=== PATIENT | female | born 1980 | race Caucasian/White ===

== ENCOUNTER 2023-11-01 20:48 | Emergency (ER) | payer MEDICAID, SELFPAY ==
[2023-11-01 20:48] VITALS: BP 157/101; PULSE 130; RESP 25; TEMP 36.6; O2SAT 100
--- NOTE | 2023-11-01 21:04 | ED.RN ---
Pt presents to ED. Shoves pt safety plan into RNs direction, Read it RN explains to pt that she needs to understand why pt is here and asks pt to elaborate on safety plan. Pt states she does not want to go to a psych [facility] and doesn't want to be seen, but wants RN to talk to . Pt calls and asks RN to explain to that she has multiple personality disorder. RN explains she cannot do this due to not knowing pt or her situation. says pt has been snorting white stuff all day and threatened to call police. Pt then agrees to be sen by ER doc. Explains during triage that she has had thoughts of hurting self starting this morning, but has no plan. Refuses to discuss anymore with this RN.
--- NOTE | 2023-11-01 21:16 | EKG12_ITS ---
Test Reason : MHC Blood Pressure : / mmHG Vent. Rate : 103 BPM Atrial Rate : 103 BPM P-R Int : 132 ms QRS Dur : 090 ms QT Int : 362 ms P-R-T Axes : 033 004 002 degrees QTc Int : 474 ms Sinus tachycardia MINOR NSSTTW CHANGES INFERIOR ABNORMAL Confirmed by Power Cohn ([id number]), health editor ALYSSA NICHOLAS ([id number]) on 11/04/2023 8:15:02 AM Referred By: Confirmed By:Power Cohn
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
[2023-11-01 21:33] VITALS: BMI 27.7
--- NOTE | 2023-11-01 21:38 | ED.RN ---
This nurse spoke to Dirk per patient request. Dirk describes manic type behaviors and that patient has been texting him telling him that she wanted to kill herself.
[2023-11-01 22:00] VITALS: BP 133/92; PULSE 91; RESP 14; O2SAT 99
--- NOTE | 2023-11-01 22:11 | ED.RN ---
The pt states she does not know her home meds. This RN called her and he does not know her home meds either but is trying to log in to her [employer] to find them.
[2023-11-01 22:26] LABS: Absolute Lymphocyte Count 2.24 X10^3/uL (0.83-4.51); Absolute Neutrophil Count 7.9 X10^3/uL (2.0-7.7); Basophil# 0.07 X10^3/uL; Basophil% 0.6 % (0-1); Eosinophil# 0.04 X10^3/uL; Eosinophils% 0.4 % (0-5); Hematocrit 46.4 % (37-47); Hemoglobin 14.8 g/dL (12.0-15.0); Lymphocyte # 2.24 X10^3/ul (0.83-4.51); Mean Corp Hgb Conc 31.9 g/dL (32-36); Mean Corpuscular Hgb 30.5 pg (27.0-32.0); Mean Corpuscular Volume 95.5 fL (81-99); Mean Platelet Vol. 10.1 fl (6.2-12.0); Monocyte# 0.93 X10^3/uL; Monocyte% 8.3 % (0-10); NRBC Flagged by Analyzer 0 % (0-5); Neutrophil # 7.86 X10^3/uL (2.7-7.7); Neutrophil % 70.1 % (47-70); Platelet Count 303 K/mm3 (150-450); RBC Distribution Width CV 12.7 % (11.6-14.6); RBC Distribution Width SD 44.2 fl (35.1-43.9); Red Blood Count 4.86 M/mm3 (4.2-5.4); White Blood Count 11.2 K/mm3 (4.4-11.0)
[2023-11-01 22:32] LABS: Red Blood Cells-Urine 0 SEEN /hpf (0-5)
[2023-11-01 22:34] LABS: Color, Urine Yellow (Yellow); Glucose, Dipstick Normal (Normal); Ketone-Dipstick Negative (Negative); Leukocyte Esterase-Dipstick 25 /ul (Negative); Nitrite-Dipstick Negative (Negative); Occult Blood-Urine Negative /ul (Negative); Protein-Dipstick 15 mg/dl (Negative); Urine Bilirubin Dipstick Negative (Negative); Urine Clarity Sl. Cloudy (Clear); Urine Urobilinogen 1 mg/dl (Normal)
[2023-11-01 22:36] LABS: Alcohol, Blood (Medical)-Serum < 3.0 mg/dL; Internal QC Validated? YES +Cl - CLEAR BKGD; Pregnancy, Serum, hCG Quali. NEGATIVE Negative
[2023-11-01 22:37] LABS: Anion Gap 8 (5-15); BUN 12 mg/dL (7-18); BUN/Creat Ratio 16.9 RATIO (10-20); Calcium,Total 9.5 mg/dL (8.5-10.1); Chloride 111 mmol/L (98-107); Creatinine, Serum 0.71 mg/dL (0.55-1.02); EST Glomerular Filtration Rate 96 mL/min (>60); Est Glom Filt Rate - Afr Amer 116 mL/min (>60); Estimated Creatinine Clearance 97.51 ml/min; Glucose 149 mg/dL (74-106); Potassium 3.3 mmol/L (3.5-5.1); Sodium Level 138 mmol/L (136-145)
[2023-11-01 22:41] LABS: Bacteria 2+ /hpf (None Seen); Mucous, Urine 1+ /hpf (<or=2+); Squamous Epithelial Cells - UA 0-5 SEEN /hpf (5-10); White Blood Cells 0-5 SEEN /hpf (0-5)
[2023-11-01 22:46] LABS: Amphetamine Urine VISTA NEGATIVE (<1000 ng/mL); Barbiturate Urine VISTA NEGATIVE (< 200 ng/mL); Benzodiazepine Urine VISTA NEGATIVE (< 200 ng/mL); Cocaine Urine VISTA NEGATIVE (< 300 ng/mL); Ecstacy Urine VISTA NEGATIVE (< 500 ng/mL); Methadone Urine VISTA NEGATIVE (< 300 ng/mL); PCP Urine VISTA NEGATIVE (< 25 ng/mL); THC Urine VISTA POSITIVE (< 50 ng/mL); Vista UDS pH Range 5
--- NOTE | 2023-11-01 23:07 | ED.RN ---
This RN was attempting to get the patient checked in and clothes off for suicidal ideations and homicidal ideations due to [facility] protocol and pt safety. This RN and security was at bedside due to the patient refusing to remove her clothes and attempting to leave. The pt was screaming, then refusing to talk because we weren't listening to her. Dr Barillas was at bedside and stated if the patient did not want to cooperate that we would restrain her for her and our safety. Dr Barillas made the call to restrain the pt for safety since she was a flight risk.
--- NOTE | 2023-11-02 00:14 | ED.RN ---
Pt demands this nurse to call . This nurse attempts to de-escalate patient, pt states that if she does not talk to a doctor right now she is going to kill herself in from of this nurse. Reviewed restraint application with patient. Pt slightly calms.
[2023-11-02] MEDS: KETAMINE 100 MG/ML 500 MG IM (00:55)
--- NOTE | 2023-11-02 00:59 | ED.RN ---
The pt was screaming I need a dr and would not cooperate/ was becoming increasingly agitated. Dr Chow ordered Ketamine. See MAR for admin details.
[2023-11-02 01:56] VITALS: BP 110/88; PULSE 88; RESP 19; O2SAT 96
[2023-11-02] MEDS: Ziprasidone IM 20 MG/ML VIAL IM (02:57)
--- NOTE | 2023-11-02 03:00 | ED.RN ---
Pt begins to escalate, yelling at sitter, upset because her clothes were removed, upset about being placed. Order obtained for geodon from Dr. Chow and administered.
[2023-11-02] MEDS: cloNIDine HCl 0.2 MG Tablet 0.5 MG PO (06:29)
[2023-11-02] MEDS: LORazepam 2 MG/ML Syringe IM (06:41)
[2023-11-02] MEDS: DiphenhydrAMINE 50 MG/ML Syringe IM (06:41)
[2023-11-02 06:51] VITALS: PULSE 71; RESP 17; TEMP 36.3; O2SAT 97
--- NOTE | 2023-11-02 06:52 | ED.RN ---
The pt demanded I call her mom and and update them. This RN did. The refused to come in and the mother was asked not to come in due to the patient being agitated all night and attempting to leave all night. The Mother requested to speak with the pt, the PT then hung up on her mom and was yelling about us cutting up her clothes and not letting her go home.
--- NOTE | 2023-11-02 07:38 | ED.RN ---
Attempted to call report. faility phone rang busy, they took our phone number and will call back for report.
--- NOTE | 2023-11-02 08:45 | ED.RN ---
PT. ALESIA CAME TO GET BELONGINGS, PT. GAVE PERMISSION FOR THIS RN TO BRING BELONGINGS
[2023-11-02 09:11] VITALS: BP 110/88; PULSE 68; RESP 16; TEMP 36.5; O2SAT 98
--- NOTE | 2023-11-02 09:44 | ED.RN ---
THIS RN CALLED REPORT TO KAMAR
== END 2023-11-02 09:46 ==
PROVIDERS: Emergency Provider Emergency Medicine; PCP Family Medicine; Visit Provider Emergency Medicine
DX: F32.A Depression, unspecified (principal); F23 Brief psychotic disorder; I42.2 Other hypertrophic cardiomyopathy; R45.851 Suicidal ideations; F17.210 Nicotine dependence, cigarettes, uncomplicated; F12.10 Cannabis abuse, uncomplicated; I10 Essential (primary) hypertension; Z79.899 Other long term (current) drug therapy
CPT/HCPCS: 80048; 80307; 80320; 81001; 84703; 85025; 93005; 96372; 99284; G0480; J3486

== ENCOUNTER 2023-11-15 13:46 | Emergency (ER) | payer MEDICAID, SELFPAY ==
[2023-11-15 13:47] VITALS: BP 168/76; PULSE 78; RESP 16; TEMP 36.4; O2SAT 98; BMI 34.3
[2023-11-15 14:37] LABS: Basophil# 0.04 X10^3/uL; Basophil% 0.6 % (0-1); Eosinophil# 0.06 X10^3/uL; Eosinophils% 0.8 % (0-5); Hematocrit 46.9 % (37-47); Hemoglobin 14.6 g/dL (12.0-15.0); Lymphocyte % 21.1 % (19-41); Mean Corp Hgb Conc 31.1 g/dL (32-36); Mean Corpuscular Hgb 30.9 pg (27.0-32.0); Mean Corpuscular Volume 99.2 fL (81-99); Mean Platelet Vol. 9.8 fl (6.2-12.0); Monocyte# 0.45 X10^3/uL; Monocyte% 6.3 % (0-10); NRBC Flagged by Analyzer 0 % (0-5); Neutrophil # 5.02 X10^3/uL (2.7-7.7); Neutrophil % 70.5 % (47-70); Platelet Count 321 K/mm3 (150-450); RBC Distribution Width CV 12.5 % (11.6-14.6); RBC Distribution Width SD 46.3 fl (35.1-43.9); Red Blood Count 4.73 M/mm3 (4.2-5.4); White Blood Count 7.1 K/mm3 (4.4-11.0)
--- NOTE | 2023-11-15 14:45 | EX.ED.DYSGE1 ---
HPI <JENNI Moise - Last Filed: 11/15/23 18:23> History of Present Illness Chief Complaint: Mental Health Narrative Narrative: Patient is a 43-year-old female with history of multiple personality disorder, history of drug abuse, who was recently admitted to a psychiatric facility greater than 1 week ago. Patient and her have a volatile relationship. Patient has made multiple homicidal comments regarding her . Patient was at the counselor center today. Patient was making remarks that she knows how to kill herself, how to kill her , and that she does feel this way however she is not sure if she is going to act on it or not. She also states that she has no control over these multiple personalities. Patient was then pink slipped by the counseling center, she then ran and was caught by the police. The police pink slipped her and brought her here. [facility] <JENNI Moise - Last Filed: 11/15/23 18:23> [facility] Medical History (Updated 11/15/23 @ 18:23 by JENNI Moise) Irregular heart beat Hypertension Hypertrophic cardiomyopathy Home Medications ?Medication ?Instructions ?Recorded ?Last Taken ?Type cloNIDine 0.5 mg PO BID 11/01/23 Unknown History furosemide 20 mg tablet (Lasix) 20 mg PO DAILY 11/01/23 Unknown History lamotrigine 100 mg tablet 100 mg PO DAILY 11/01/23 Unknown History (Lamictal) losartan 100 mg tablet 100 mg PO DAILY 11/01/23 Unknown History metoprolol 50 mg PO BID 11/01/23 Unknown History minocycline 100 mg capsule 100 mg PO BID 11/01/23 Unknown History risperiDONE 10 mg PO TID 11/01/23 Unknown History Allergy/AdvReac Type Severity Reaction Status Date / Time acetaminophen (From Allergy Shortness Verified 11/15/23 13:47 Tylenol-Codeine #3) of breath amoxicillin (Amoxicillin) Allergy Shortness Verified 11/15/23 13:47 of breath aspirin Allergy Shortness Verified 11/15/23 13:47 of breath codeine phosphate (From Allergy Shortness Verified 11/15/23 13:47 Tylenol-Codeine #3) of breath NSAIDS (Non-Steroidal Allergy Other Verified 11/15/23 13:47 Anti-Inflamma Penicillins Allergy Shortness Verified 11/15/23 13:47 of breath shellfish derived Allergy Shortness Verified 11/15/23 13:47 of breath tramadol Allergy Other Verified 11/15/23 13:47 Surgical History (Updated 11/01/23 @ 21:33 by Jessie Steward) History of cholecystectomy Previous back surgery Social History Smoking Status: Current every day smoker tobacco type: cigarettes ROS <JENNI Moise - Last Filed: 11/15/23 18:23> ROS ED ROS Narrative Constitutional: Negative for fever, chills, weight loss, weakness Eyes: Negative for vision loss, vision change, double vision ENT: Negative for any sore throat, ear pain, congestion Cardiovascular: Negative for any chest pain, tightness, palpitations Respiratory: Negative for any cough, sputum production, hemoptysis, dyspnea, dyspnea on exertion, orthopnea Gastrointestinal: Negative for any abdominal pain, nausea, vomiting, diarrhea, constipation, blood in stool, blood in vomit : Negative for any urinary frequency, dysuria, retention, blood in urine Muscle skeletal: Negative for any neck pain, back pain Neurological: Negative for any headache, syncope, dizziness Skin: Negative for any rashes, itching, abrasions, lacerations Psychiatric: Negative for any depression, anxiety, stress, suicidal ideation. Positive for aggressive behavior, threatening behavior, homicidal ideation Hematologic: Negative for any excessive bruising, easy bleeding EXAM <JENNI Moise - Last Filed: 11/15/23 18:23> Physical Exam Narrative Exam Narrative: Vital signs reviewed. I spoke with the patient, she was appropriate with me. Patient did appear irritated, she does use a lot of cursing. Patient states that she hates her and that he wants to control her. HEET: Head normocephalic atraumatic, TMs clear bilaterally. Posterior pharynx is clear, moist mucous membranes. Nares clear bilaterally. Neck: Supple with no lymphadenopathy or tenderness. No signs of meningismus. Cardiac: Regular rate and rhythm no murmurs gallops or rubs, equal peripheral pulses bilaterally. Respiratory: Lungs clear to auscultation bilaterally. No chest tenderness. Abdomen: Soft, nontender, nondistended. No abdominal bruit or pulsatile masses. No hepatosplenomegaly Extremities: No peripheral edema, no signs of gross trauma or deformity. Active full range of motion of all extremities. Neuro: Cranial nerves II through XII intact, no focal neurological deficits. Skin: Clean dry and intact with no rash, purpura, petechiae, vesicles or pustules. Backs/flank: No CVA tenderness, no midline spinal tenderness, no deformity. Psych: Normal mood and affect. Negative for any suicidal ideation, patient dates she does have homicidal ideation secondary to what is happening with her and her . Const Vital Signs: 11/15/23 13:47 11/15/23 17:00 11/15/23 20:00 Temperature 97.6 F L Temperature Source Temporal Pulse Rate 78 81 81 Respiratory Rate 16 16 18 Blood Pressure 168/76 H 155/77 H 148/79 H Blood Pressure Mean 106 103 102 Pulse Ox 98 98 96 Oxygen Delivery Method Room Air Room Air 11/15/23 20:00 Temperature 97.8 F Temperature Source Pulse Rate 81 Respiratory Rate 18 Blood Pressure 148/79 H Blood Pressure Mean 102 Pulse Ox 96 Oxygen Delivery Method Positive well nourished and well developed General Appearance ED: well developed <Dr. Juan David Tate DO - Last Filed: 11/15/23 22:51> Physical Exam Const Vital Signs: 11/15/23 13:47 11/15/23 17:00 11/15/23 20:00 Temperature 97.6 F L Temperature Source Temporal Pulse Rate 78 81 81 Respiratory Rate 16 16 18 Blood Pressure 168/76 H 155/77 H 148/79 H Blood Pressure Mean 106 103 102 Pulse Ox 98 98 96 Oxygen Delivery Method Room Air Room Air 11/15/23 20:00 Temperature 97.8 F Temperature Source Pulse Rate 81 Respiratory Rate 18 Blood Pressure 148/79 H Blood Pressure Mean 102 Pulse Ox 96 Oxygen Delivery Method MDM <JENNI Moise - Last Filed: 11/15/23 18:23> [facility] Lab Data Labs: Laboratory Results - last 24 hr 11/15/23 14:05 WBC 7.1 RBC 4.73 Hgb 14.6 Hct 46.9 MCV 99.2 H MCH 30.9 MCHC 31.1 L RDW Std Deviation 46.3 H RDW Coeff of Melissa 12.5 Plt Count 321 MPV 9.8 Immature Gran % (Auto) 0.700 Neut % (Auto) 70.5 H Lymph % (Auto) 21.1 [place] % (Auto) 6.3 Eos % (Auto) 0.8 Baso % (Auto) 0.6 Absolute Neuts (auto) 5.0 Absolute Lymphs (auto) 1.50 Nucleated RBC % 0 Sodium 141 Potassium 3.7 Chloride 108 H Carbon Dioxide 28.0 Anion Gap 5 BUN 19 H Creatinine 0.73 Estim Creat Clear Calc 93.85 Est GFR (MDRD) Af Amer 113 Est GFR (MDRD) Non-Af 93 BUN/Creatinine Ratio 26.1 H Glucose 114 H Calcium 9.1 Serum , Qual NEGATIVE Urine Opiates Screen NEGATIVE Urine Methadone Screen NEGATIVE Ur Barbiturates Screen NEGATIVE Ur Phencyclidine Scrn NEGATIVE Ur Amphetamines Screen NEGATIVE MDMA (Ecstasy) Screen POSITIVE H U Benzodiazepines Scrn NEGATIVE Urine Cocaine Screen NEGATIVE U Cannabinoids Screen POSITIVE H Ur Drug Screen Comment Ethyl Alcohol < 3.0 Treatment and Re-Evaluation :: Differential diagnosis includes however is not limited to: Homicidal ideation, suicidal ideation, psychosis, manic behavior Patient appears to be in no obvious respiratory distress vital signs are stable, patient is nontoxic-appearing. Speaking with the patient, the patient does appear to be manic, patient has a lot of aggression and anger. Patient does have made homicidal threats to her today that was heard by the counseling center. I spoke with the counseling center, they do not believe that she is safe to leave. They believe that she needs to be admitted to a psychiatric facility to get her medications corrected counseling center states that she is not following through with treatments. I spoke with the , the is scared to take her home. Patient will receive the laboratory values to medically clear the patient. I spoke with the counseling center, they will be looking for places to send her. Patient was given a transdermal nicotine patch. Tylenol. I did fill out on the pink slip that we signed by ER physician. Patient requests something for headache. I did give the patient Tylenol. The patient's CBC was unremarkable, chemistries show glucose 114, patient is not . Patient's drug screen was positive for MDMA/ecstasy, as well as marijuana. Patient states that the medication for her headache is not helping, however patient is allergic to codeine, NSAIDs, tramadol. I told her that not giving her narcotic pain medicine for her chronic migraines as this is not the treatment. I did offer her muscle relaxer however she refused and that this will make her mean. Patient continues to get angry because she is not receiving opiate analgesics for headache. I told her that she will not be getting opiate analgesics for this chronic problem. Patient will be given oral Geodon. at bedside. Patient has an accepting physician at [facility]. Patient will be transferred at roughly 9 PM today. Patient does continually fight with her who is in the room. Patient remained stable. <Dr. Juan David Tate, DO - Last Filed: 11/15/23 22:51> [facility] Lab Data Attestation: I reviewed the patient's lab results. Labs: Laboratory Results - last 24 hr 11/15/23 14:05 WBC 7.1 RBC 4.73 Hgb 14.6 Hct 46.9 MCV 99.2 H MCH 30.9 MCHC 31.1 L RDW Std Deviation 46.3 H RDW Coeff of Melissa 12.5 Plt Count 321 MPV 9.8 Immature Gran % (Auto) 0.700 Neut % (Auto) 70.5 H Lymph % (Auto) 21.1 [place] % (Auto) 6.3 Eos % (Auto) 0.8 Baso % (Auto) 0.6 Absolute Neuts (auto) 5.0 Absolute Lymphs (auto) 1.50 Nucleated RBC % 0 Sodium 141 Potassium 3.7 Chloride 108 H Carbon Dioxide 28.0 Anion Gap 5 BUN 19 H Creatinine 0.73 Estim Creat Clear Calc 93.85 Est GFR (MDRD) Af Amer 113 Est GFR (MDRD) Non-Af 93 BUN/Creatinine Ratio 26.1 H Glucose 114 H Calcium 9.1 Serum , Qual NEGATIVE Urine Opiates Screen NEGATIVE Urine Methadone Screen NEGATIVE Ur Barbiturates Screen NEGATIVE Ur Phencyclidine Scrn NEGATIVE Ur Amphetamines Screen NEGATIVE MDMA (Ecstasy) Screen POSITIVE H U Benzodiazepines Scrn NEGATIVE Urine Cocaine Screen NEGATIVE U Cannabinoids Screen POSITIVE H Ur Drug Screen Comment Ethyl Alcohol < 3.0 Treatment and Re-Evaluation :: Differential diagnosis includes however is not limited to: Homicidal ideation, suicidal ideation, psychosis, manic behavior Patient appears to be in no obvious respiratory distress vital signs are stable, patient is nontoxic-appearing. Speaking with the patient, the patient does appear to be manic, patient has a lot of aggression and anger. Patient does have made homicidal threats to her today that was heard by the counseling center. I spoke with the counseling center, they do not believe that she is safe to leave. They believe that she needs to be admitted to a psychiatric facility to get her medications corrected counseling center states that she is not following through with treatments. I spoke with the , the is scared to take her home. Patient will receive the laboratory values to medically clear the patient. I spoke with the counseling center, they will be looking for places to send her. Patient was given a transdermal nicotine patch. Tylenol. I did fill out on the pink slip that we signed by ER physician. Patient requests something for headache. I did give the patient Tylenol. The patient's CBC was unremarkable, chemistries show glucose 114, patient is not . Patient's drug screen was positive for MDMA/ecstasy, as well as marijuana. Patient states that the medication for her headache is not helping, however patient is allergic to codeine, NSAIDs, tramadol. I told her that not giving her narcotic pain medicine for her chronic migraines as this is not the treatment. I did offer her muscle relaxer however she refused and that this will make her mean. Patient continues to get angry because she is not receiving opiate analgesics for headache. I told her that she will not be getting opiate analgesics for this chronic problem. Patient will be given oral Geodon. at bedside. Patient has an accepting physician at [facility]. Patient will be transferred at roughly 9 PM today. Patient does continually fight with her who is in the room. Patient remained stable. Attending note: Patient seen and evaluated with vp of digital marketing. I perform my own [id number] evaluation. I agree with the plan of work-up. Sent in as a pink slip from counseling center. Increasing homicidal ideations and behaviors. History of multiple personality disorder. Medical clearance labs obtained toxicology positive for MDMA along with THC. Alcohol negative. She has had increasing agitation agreed with oral Geodon. She has been medically clear. She is excepted to [facility]. [place] slip filled out. Discharge Plan Triage Chief Complaint: Mental Health ED Midlevel Provider: Doron Solitario ED Provider: Juan David Tate Dx/Rx/DC Orders Clinical Impression: Orin, Personality disorder, Homicidal ideation Prescriptions: No Action furosemide [Lasix] 20 mg tablet 20 mg PO DAILY losartan 100 mg tablet 100 mg PO DAILY metoprolol 50 mg 50 mg PO BID cloNIDine 0.5 mg PO BID lamotrigine [Lamictal] 100 mg tablet 100 mg PO DAILY minocycline 100 mg capsule 100 mg PO BID risperiDONE 10 mg 10 mg PO TID Primary Care Provider: Power Escobar Referrals: Power Escobar DO [Primary Care Provider] - Print Language: Stateless Disposition Disposition: Psychiatric Hospital or Unit Discharge Location: [facility] Discharge Date/Time: 11/15/23 20:43
[2023-11-15 14:54] LABS: Internal QC Validated? YES +Cl - CLEAR BKGD
[2023-11-15] MEDS: Acetaminophen 500 MG Tablet 1000 MG PO (14:54)
[2023-11-15 14:55] LABS: Pregnancy, Serum, hCG Quali. NEGATIVE Negative
[2023-11-15 14:57] LABS: Anion Gap 5 (5-15); BUN 19 mg/dL (7-18); BUN/Creat Ratio 26.1 RATIO (10-20); Calcium,Total 9.1 mg/dL (8.5-10.1); Chloride 108 mmol/L (98-107); Creatinine, Serum 0.73 mg/dL (0.55-1.02); EST Glomerular Filtration Rate 93 mL/min (>60); Est Glom Filt Rate - Afr Amer 113 mL/min (>60); Estimated Creatinine Clearance 93.85 ml/min; Glucose 114 mg/dL (74-106); Potassium 3.7 mmol/L (3.5-5.1); Sodium Level 141 mmol/L (136-145)
[2023-11-15 15:00] LABS: Alcohol, Blood (Medical)-Serum < 3.0 mg/dL
[2023-11-15 16:01] LABS: Amphetamine Urine VISTA NEGATIVE (<1000 ng/mL); Barbiturate Urine VISTA NEGATIVE (< 200 ng/mL); Benzodiazepine Urine VISTA NEGATIVE (< 200 ng/mL); Cocaine Urine VISTA NEGATIVE (< 300 ng/mL); Ecstacy Urine VISTA POSITIVE (< 500 ng/mL); Methadone Urine VISTA NEGATIVE (< 300 ng/mL); PCP Urine VISTA NEGATIVE (< 25 ng/mL); THC Urine VISTA POSITIVE (< 50 ng/mL); Vista UDS pH Range 5
[2023-11-15 17:00] VITALS: BP 155/77; PULSE 81; RESP 16; O2SAT 98
[2023-11-15] MEDS: Ziprasidone HCl 20 MG Capsule PO (17:36)
[2023-11-15 20:00] VITALS: BP 148/79; PULSE 81; RESP 18; TEMP 36.6; O2SAT 96
== END 2023-11-15 20:43 ==
PROVIDERS: Nurse Practitioner; Emergency Provider Emergency Medicine; PCP Student in an Organized Health Care Education/Training Program; Visit Provider Emergency Medicine
DX: R45.850 Homicidal ideations (principal); F60.9 Personality disorder, unspecified; F30.9 Manic episode, unspecified; F17.210 Nicotine dependence, cigarettes, uncomplicated; I10 Essential (primary) hypertension; Z79.899 Other long term (current) drug therapy; Z90.49 Acquired absence of other specified parts of digestive tract
CPT/HCPCS: 80048; 80307; 80320; 84703; 85025; 99284; G0480

== ENCOUNTER 2024-05-11 07:55 | Emergency (ER) | payer MEDICAID, SELFPAY ==
[2024-05-11 07:55] VITALS: BP 200/114; BP 212/101; PULSE 62; PULSE 63; RESP 16; RESP 18; TEMP 36.6; O2SAT 100; BMI 34.9
--- NOTE | 2024-05-11 08:07 | EX.ED.DYSGE1 ---
HPI History of Present Illness Chief Complaint: Headache Narrative Narrative: Patient is a 43-year-old female with past medical to hypertension, hypertrophic cardiomyopathy who presents to the emergency department chief complaint headache. Patient states that she has had a headache since Saturday and she has tried several [id number] medications and states that her headache is not proved. States it normally lasts about 2 days and will start to improve she states that thus far her headache has not therefore she came here for further evaluation management. Patient states that her daughter has a cold but denies any other recent sick contacts. Patient states that she did take her blood pressure medication this morning at 7 AM prior to arrival she is hypertensive here in the emergency department at 200/114. Patient states that she does have migraine headaches in the past. Patient denies any head injuries or falls or trauma. Patient denies any blood thinning medications. [facility] Medical History Irregular heart beat Hypertension Hypertrophic cardiomyopathy Home Medications ?Medication ?Instructions ?Recorded ?Last Taken ?Type furosemide 20 mg tablet (Lasix) 20 mg PO DAILY 11/01/23 Unknown History lamotrigine 100 mg tablet 100 mg PO DAILY 11/01/23 Unknown History (Lamictal) losartan 100 mg tablet 100 mg PO DAILY 11/01/23 Unknown History minocycline 100 mg capsule 100 mg PO BID 11/01/23 Unknown History risperiDONE 10 mg PO TID 11/01/23 Unknown History clonidine HCl 0.2 mg tablet 0.2 mg PO Q12H 05/11/24 Unknown History metoprolol succinate 50 mg 50 mg PO DAILY 05/11/24 Unknown History tablet,extended release 24 hr ondansetron 4 mg disintegrating 4 mg PO Q6H PRN nausea and 05/11/24 Unknown Rx tablet vomiting #20 tabs Allergy/AdvReac Type Severity Reaction Status Date / Time acetaminophen (From Allergy Shortness Verified 05/11/24 07:56 Tylenol-Codeine #3) of breath amoxicillin (Amoxicillin) Allergy Shortness Verified 05/11/24 07:56 of breath aspirin Allergy Shortness Verified 05/11/24 07:56 of breath codeine phosphate (From Allergy Shortness Verified 05/11/24 07:56 Tylenol-Codeine #3) of breath NSAIDS (Non-Steroidal Allergy Other Verified 05/11/24 07:56 Anti-Inflamma Penicillins Allergy Shortness Verified 05/11/24 07:56 of breath shellfish derived Allergy Shortness Verified 05/11/24 07:56 of breath tramadol Allergy Other Verified 05/11/24 07:56 Surgical History History of cholecystectomy Previous back surgery Social History Smoking Status: Current every day smoker tobacco type: cigarettes ROS ROS ED ROS Narrative Constitutional: Complains of headache as noted above denies any lightness dizziness, fevers, chills Cardiovascular: Denies chest pain or palpitations Respiratory: Denies coughing wheezing shortness of breath Abdomen: Complains of nausea denies vomiting or diarrhea Neurological: Denies any numbness, weakness, tingling Musculoskeletal: Denies any back pain Skin: Denies any rashes or lesions EXAM Physical Exam Narrative Exam Narrative: General: Patient lying in bed rest comfortably did not appear to be acute distress Head: Atraumatic, normocephalic Eyes: PERRL bilateral, EOMI bilateral, no conjunctival injection noted Neck: Soft, supple, trachea midline Cardiovascular: Regular rate and rhythm no murmurs gallops rubs noted Respiratory: Clear to auscultation bilaterally Abdomen: Nontender to palpation Extremities: +5/5 strength noted in the bilateral upper and lower extremities Neurological: Patient following commands knew that she was at [facility] year is 2023. NIH of 0 GCS 15 Skin: Warm, dry, intact Const Vital Signs: 05/11/24 07:55 05/11/24 07:55 05/11/24 09:00 Temperature 98 F Temperature Source Temporal Pulse Rate 63 62 89 Respiratory Rate 16 18 18 Blood Pressure 212/101 H 200/114 H 187/102 H Blood Pressure Mean 138 142 130 Pulse Ox 100 100 99 Oxygen Delivery Method Room Air Room Air Room Air 05/11/24 09:48 Temperature Temperature Source Pulse Rate Respiratory Rate Blood Pressure 170/96 H Blood Pressure Mean 120 Pulse Ox Oxygen Delivery Method MDM MDM MDM Narrative Medical decision making narrative: Patient is a 43-year-old female who presents to the emergency department chief complaint headache. On the differential diagnose includes but not limited to migraine headache, tension headache, cluster headache, headache secondary to hypertension. Patient will be given Reglan, Toradol and IV fluids. On reevaluation the patient and she is feeling better however she was still noted to be hypertensive here in the emergency department despite taking her home medications we will give her her 5 mg of IV hydralazine and reassess. On reevaluation of the patient she feels much improved and she would like to go home at this point in time. Patient was encouraged to keep a close eye on her blood pressure and keep a blood pressure log randomly keep taking her blood pressure 3 times throughout the day and take this to her primary care physician at her follow-up appointment. She is advised to call them for a follow-up appointment. She is encouraged to rotate Tylenol ibuprofen [id number] for her migraine headaches. She is encouraged return with worsening symptoms and concerns. She is agreeable this plan would like to go home at this point time should be discharged home in stable condition. She is requesting Zofran to the pharmacy which was sent. She is requesting a work note which was given. Discharge Plan Triage Chief Complaint: Headache ED Provider: Fernando Jo Dx/Rx/DC Orders Clinical Impression: Headache Prescriptions: New ondansetron 4 mg tablet,disintegrating 4 mg PO Q6H PRN (Reason: nausea and vomiting) Qty: 20 0RF No Action metoprolol succinate 50 mg tablet extended release 24 hr 50 mg PO DAILY clonidine HCl 0.2 mg tablet 0.2 mg PO Q12H furosemide [Lasix] 20 mg tablet 20 mg PO DAILY losartan 100 mg tablet 100 mg PO DAILY lamotrigine [Lamictal] 100 mg tablet 100 mg PO DAILY minocycline 100 mg capsule 100 mg PO BID risperiDONE 10 mg 10 mg PO TID Primary Care Provider: Power Escobar Referrals: Power Escobar DO [Primary Care Provider] - Activity Restrictions/Additional Instructions: Follow-up with your primary care physician in the outpatient setting. Return with worsening symptoms or any concerns. Ensure you are taking your blood pressure medication as prescribed and keep the blood pressure log that we discussed here in the emergency department taking it 3 times randomly throughout the day write down what the blood pressure was in the time he took it and take this to your primary care physician to see if they need to make any adjustments to your medications. Use ibuprofen and Tylenol for your headaches and ensure adequate hydration with water. Print Language: Portuguese Disposition Disposition: Home, Self Care
[2024-05-11] MEDS: 0.9% Normal Saline (1000mL) 1,000 ML 999 ML IV (08:16)
[2024-05-11] MEDS: Metoclopramide 10 MG/2 ML Vial IV (08:16)
[2024-05-11] MEDS: Ketorolac 15 MG/ML Vial IV (08:16)
[2024-05-11 09:00] VITALS: BP 187/102; PULSE 89; RESP 18; O2SAT 99
[2024-05-11] MEDS: hydrALAZINE 20 MG/ML Vial 5 MG IV (09:20)
[2024-05-11 09:48] VITALS: BP 170/96
[2024-05-11 10:41] VITALS: BP 168/74; PULSE 82; RESP 16; TEMP 36.4; O2SAT 98
== END 2024-05-11 10:41 | disposition home or self-care (01) ==
PROVIDERS: Emergency Provider Emergency Medicine; PCP Student in an Organized Health Care Education/Training Program; Visit Provider Emergency Medicine
DX: R51.9 Headache, unspecified (principal); I10 Essential (primary) hypertension; F17.210 Nicotine dependence, cigarettes, uncomplicated; Z79.899 Other long term (current) drug therapy
CPT/HCPCS: 96361; 96374; 96375; 99283; A4216